=== PATIENT | female | born 1945 | race Two or more races ===

== ENCOUNTER 2018-07-24 18:28 | Emergency (ER) | payer MEDICAID ==
[~2018-07-24] VITALS: Ht 157.5 cm; Wt 59.0 kg
[2018-07-24 18:56] VITALS: BP 158/78
--- NOTE | 2018-07-24 19:32 | Emergency Room Report ---
History of Present Illness General Chief Complaint: Multiple Trauma/Fall Source: Patient, EMS Present Illness HPI This is a 73-year-old female who had a mechanical fall prior to arrival. She is cautioned. She hit her head. She sustained a laceration to the nasal bridge. She also complains of right knee pain is worse on movement. No other associated symptoms. Allergies: Coded Allergies: No Known Allergies (Unverified , 07/24/18) Patient History Past Medical History: HTN Past Surgical History: none Pertinent Family History: HTN Nursing Documentation-[facility] Past Medical History: No History, Except For Hx Hypertension: Yes Review of Systems All Other Systems: negative except mentioned in HPI Physical Exam Vital Signs Date Time Temp Pulse Resp B/P (MAP) Pulse Ox O2 Delivery O2 Flow Rate FiO2 07/24/18 18:25 98.2 70 18 146/92 97 Room Air ENT: hearing grossly normal, normal pharynx, no angioedema, normal voice Neck: full range of motion, supple/symm/no masses Respiratory: chest non-tender, lungs clear, normal breath sounds, speaking full sentences Cardiovascular #1: regular rate, rhythm, no edema Neurologic: alert, oriented x3, responsive, motor strength/tone normal, sensory intact, speech normal Skin: other - there is a 2 cm superficial laceration at the nasal bridge Procedures Laceration/Wound Repair Laceration/Wound Repair : Consent: Verbal Wound Location: face Wound's Depth, Shape: superficial Wound Explored: clean Betadine Prep?: No Wound Repaired With: Dermabond Patient Tolerated: Well Complications: None Medical Decision Making Diagnostic Impression: Primary Impression: Head injury Additional Impressions: Laceration Sprain of right knee ER Course Patient presents complexes or risk requiring multiple bedside evaluation. I was particular concern of acute intracranial hemorrhage, subarachnoid hemorrhage , fracture. She has no abdominal tenderness. She has no cervical spine tenderness. The laceration was repaired. At this time, the patient will be discharged home with follow-up with the primary care physicians and outpatient. Right knee was immobilized with Daquan wrap. Other X-Ray Diagnostic Results Other X-Ray Diagnostic Results : X-Ray ordered: ccomplete right knee # of Views/Limited Vs Complete: 3 View Indication: Pain EP Interpretation: Yes Interpretation: no dislocation, no soft tissue swelling, no fractures CT/MRI/US Diagnostic Results CT/MRI/US Diagnostic Results : Impression CT head revealed no acute intracranial process Last Vital Signs Date Time Temp Pulse Resp B/P (MAP) Pulse Ox O2 Delivery O2 Flow Rate FiO2 07/24/18 18:57 65 18 Room Air 07/24/18 18:56 98.0 158/78 95 Disposition: HOME, SELF-CARE Condition: Stable Scripts Tramadol Hcl* (ULTRAM*) 50 Mg Tablet 50 MG ORAL Q6H PRN for For Pain, #14 TAB 0 Refills Prov: ARTEM HERMOSILLO 07/24/18 Patient Instructions: Fall Prevention in the Home, [id number] ARTEM HERMOSILLO Jul 24, 2018 19:32
--- NOTE | 2018-07-24 20:22 | Diagnostic Imaging Report ---
EXAM: XR Right Knee, 3 views CLINICAL HISTORY: PAIN TECHNIQUE: Three views of the right knee. COMPARISON: No relevant prior studies available. FINDINGS: Bones/joints: Severe tricompartmental degenerative changes with joint space loss, subchondral sclerosis, and large osteophytes. No acute fracture or malalignment. Soft tissues: Unremarkable. IMPRESSION: Severe osteoarthritis.
--- NOTE | 2018-07-24 20:22 | Diagnostic Imaging Report ---
EXAM: CT Head Without Intravenous Contrast CLINICAL HISTORY: PAIN TECHNIQUE: Axial computed tomography images of the head/brain without intravenous contrast. CTDI is 0.15, 70.38 mGy and DLP is 1333 mGy-cm. One or more of the following dose reduction techniques were used: automated exposure control, adjustment of the mA and/or kV according to patient size, use of iterative reconstruction technique. COMPARISON: No relevant prior studies available. FINDINGS: Brain: No acute intracranial hemorrhage, loss of hanley-white differentiation, or significant mass effect. Nonspecific areas of hypoattenuation in the periventricular white matter likely represent the sequela of chronic small vessel ischemic disease. Ventricles: Ventricular and sulcal prominence commensurate the patient's age. Bones/joints: Unremarkable. No acute fracture. Soft tissues: Unremarkable. Sinuses: Mild mucosal thickening in the paranasal sinuses. No air- fluid levels. Mastoid air cells: Unremarkable. IMPRESSION: No acute intracranial abnormality.
[2018-07-24] MEDS ORDERED: TRAMADOL HCL50 MG ORAL (20:57)
[2018-07-24 21:15] VITALS: BP 132/74
== END 2018-07-24 21:15 | disposition home or self-care (01) ==
LOC: EDBD 18:28 → EMR 20:57
DX: S01.21XA Laceration without foreign body of nose, initial encounter (principal); S83.91XA Sprain of unspecified site of right knee, initial encounter; W19.XXXA Unspecified fall, initial encounter; Y92.9 Unspecified place or not applicable; I10 Essential (primary) hypertension
CPT/HCPCS: 12011; 70450; 73562; 99284; Z7502